=== PATIENT | female | born 1995 ===

== ENCOUNTER 2020-12-10 06:00 | Outpatient (RCR) | payer BC, SELFPAY | END 2020-12-18 23:59 | disposition home or self-care (01) | LOC: MPT 06:00 | PROVIDERS: Referring Provider Obstetrics & Gynecology Gynecology; Visit Provider Obstetrics & Gynecology Gynecology | DX: M79.18 Myalgia, other site (principal) | CPT/HCPCS: 97110; 97140; 97161; 97530 ==

== ENCOUNTER 2020-12-19 06:00 | Outpatient (RCR) | payer BC, SELFPAY | END 2021-01-17 23:59 | disposition home or self-care (01) | LOC: MPT 06:00 | PROVIDERS: Referring Provider Obstetrics & Gynecology Gynecology; Visit Provider Obstetrics & Gynecology Gynecology | DX: M79.18 Myalgia, other site (principal) | CPT/HCPCS: 97110; 97140; 97530 ==

== ENCOUNTER 2021-01-18 06:00 | Outpatient (RCR) | payer BC, SELFPAY | END 2021-02-17 23:59 | disposition home or self-care (01) | LOC: MPT 06:00 | PROVIDERS: Referring Provider Obstetrics & Gynecology Gynecology; Visit Provider Obstetrics & Gynecology Gynecology | DX: M79.18 Myalgia, other site (principal) | CPT/HCPCS: 97140 ==

== ENCOUNTER 2021-02-18 06:00 | Outpatient (RCR) | payer BC, SELFPAY | END 2021-03-19 23:59 | disposition home or self-care (01) | LOC: MPT 06:00 | PROVIDERS: Referring Provider Obstetrics & Gynecology Gynecology; Visit Provider Obstetrics & Gynecology Gynecology | DX: M79.18 Myalgia, other site (principal) | CPT/HCPCS: 97110; 97140 ==

== ENCOUNTER 2021-03-20 06:00 | Outpatient (RCR) | payer BC, SELFPAY | END 2021-04-19 23:59 | disposition home or self-care (01) | LOC: MPT 06:00 | PROVIDERS: Referring Provider Obstetrics & Gynecology Gynecology; Visit Provider Obstetrics & Gynecology Gynecology | DX: M79.10 Myalgia, unspecified site (principal) | CPT/HCPCS: 97140 ==